=== PATIENT | male | born 1960 | race Hispanic/Latino ===

== ENCOUNTER → 2018-09-14 | Outpatient (CLI) | payer MEDICARE ==
--- NOTE | 2018-09-14 15:12 | Diagnostic Imaging Report ---
Exam: Right knee radiographs-3 views History: Anterior knee pain. Comparison: None. Findings: No evidence of acute fracture, malalignment, or soft tissue abnormality. The joint spaces are preserved. No evidence of joint effusion. Impression: Unremarkable right knee radiographs. Signed by: Dr. Selene Flannery MD on 09/14/2018 3:08 PM
== END ==
LOC: RAD 14:17
PROVIDERS: ATTEND Family Medicine
DX: M25.561 Pain in right knee (principal)

== ENCOUNTER → 2018-12-23 | Outpatient (CLI) | payer MEDICARE ==
--- NOTE | 2018-12-23 12:47 | Diagnostic Imaging Report ---
Exam: Right shoulder 2 views History: Shoulder pain Comparison: None. Findings: No acute, displaced fracture or dislocation. Humeral head projects appropriately adjacent to the glenoid. Acromioclavicular and glenohumeral joint spaces are well-maintained. Soft tissues unremarkable. Impression: No acute osseous abnormality. Signed by: Dr. Silvino Chamorro M.D. on 12/23/2018 12:44 PM
== END ==
LOC: RAD 12:10
PROVIDERS: ATTEND Family Medicine
DX: M25.511 Pain in right shoulder (principal)

== ENCOUNTER → 2019-09-11 | Outpatient (CLI) | payer MEDICARE | LOC: MRI 09:22 | PROVIDERS: ATTEND Specialist | DX: M75.41 Impingement syndrome of right shoulder (principal) ==

== ENCOUNTER → 2020-05-31 | Outpatient (CLI) | payer MEDICARE ==
--- NOTE | 2020-05-31 12:38 | Diagnostic Imaging Report ---
X-ray right foot History: Pain Comparison: None Findings: No acute fracture, subluxation, significant soft tissue swelling, radiopaque foreign body. Impression: As above. Signed by: Jorge Milligan MD on 05/31/2020 12:34 PM
== END ==
LOC: RAD 12:08
PROVIDERS: ATTEND Family Medicine
DX: M79.671 Pain in right foot (principal)

== ENCOUNTER → 2020-10-10 | Outpatient (CLI) | payer MEDICARE | LOC: DX 09:21 | PROVIDERS: ATTEND Internal Medicine Gastroenterology | DX: K22.70 Barrett's esophagus without dysplasia (principal); Z86.010 Personal history of colon polyps | CPT/HCPCS: 74018 ==

== ENCOUNTER → 2021-01-21 | Outpatient (CLI) | payer MEDICARE | LOC: DX 10:04 | PROVIDERS: ATTEND Internal Medicine Gastroenterology | DX: E11.9 Type 2 diabetes mellitus without complications (principal); K21.00 Gastro-esophageal reflux disease with esophagitis, without bleeding; K82.8 Other specified diseases of gallbladder; K59.00 Constipation, unspecified; K44.9 Diaphragmatic hernia without obstruction or gangrene; K76.0 Fatty (change of) liver, not elsewhere classified; E66.01 Morbid (severe) obesity due to excess calories; Z86.010 Personal history of colon polyps | CPT/HCPCS: 74280 ==

== ENCOUNTER → 2021-06-17 | Outpatient (CLI) | payer MEDICARE | LOC: RAD 13:31 | PROVIDERS: ATTEND Family Medicine | DX: M79.605 Pain in left leg (principal) | CPT/HCPCS: 93970 ==

== ENCOUNTER 2024-08-05 00:27 | Emergency (ER) | payer MEDICARE ==
[~2024-08-05] VITALS: Ht 170.2 cm; Wt 104.3 kg
[2024-08-05 00:58] VITALS: PULSE 80; RESP 20; TEMP 98
[2024-08-05] MEDS: LIDOCAINE HCL 1% LOCAL INJ 20 ML VIAL INJ STA (01:09)
[2024-08-05] MEDS ORDERED: CEPHALEXIN500 MG PO (01:40)
[2024-08-05 02:04] VITALS: BP 132/86; PULSE 82; RESP 16; TEMP 98.8; O2SAT 98
== END 2024-08-05 02:00 | disposition home or self-care (01) ==
LOC: ER 00:35
DX: S91.312A Laceration without foreign body, left foot, initial encounter (principal); W26.8XXA Contact with other sharp object(s), not elsewhere classified, initial encounter; Y93.01 Activity, walking, marching and hiking; Y92.89 Other specified places as the place of occurrence of the external cause; I10 Essential (primary) hypertension; E11.9 Type 2 diabetes mellitus without complications
CPT/HCPCS: 12001; 73630; 99283; J2003